=== PATIENT | female | born 1990 | race Caucasian/White ===

== ENCOUNTER → 2017-09-24 | Outpatient (CLI) | payer OTHER ==
--- NOTE | 2017-09-24 11:12 | RAD ---
CT of the pelvis without contrast, 09/24/2017: History: Previous right hip surgery, pain, possible impingement Noncontrast scans were obtained with multiplanar reconstructions produced. No recent fracture or dislocation is identified. There is mild spurring at the hip joints, right greater than left. There is mild associated joint space narrowing, more so anterosuperiorly on the right. The periarticular soft tissues at both hip levels are unremarkable. There is mild to moderate degenerative change at the symphysis pubis. Elongated lucencies within the superior aspects of both iliac bones medially most likely represent old surgical pin tracks. Correlation with the patient's surgical history is suggested. Incidental note is made of mild posterior disc bulging and marginal spurring at L5-S1 and L4-5. No pelvic mass or unusual fluid collection is seen . 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 PQRS Compliance Statement: One or more of the following individualized dose reduction techniques were utilized for this examination: 1. Automated exposure control 2. Adjustment of the mA and/or kV according to patient size 3. Use of iterative reconstruction technique
== END | disposition home or self-care (01) ==
LOC: CT 10:27
DX: S72.092D Other fracture of head and neck of left femur, subsequent encounter for closed fracture with routine healing (principal); S72.091D Other fracture of head and neck of right femur, subsequent encounter for closed fracture with routine healing; M16.0 Bilateral primary osteoarthritis of hip; X58.XXXD Exposure to other specified factors, subsequent encounter
CPT/HCPCS: 72192